=== PATIENT | female | born 1980 | race Hispanic/Latino ===

== ENCOUNTER 2016-07-28 06:22 | Day surgery (SDC) | payer OTHER ==
[~2016-07-28] VITALS: Ht 167.6 cm; Wt 65.8 kg
[~2016-07-28 06:22] MED LIST: AMOXICILLIN500 MG PO; AUGMENTIN875TAB PO; BENZONATATE200 MG PO; ESCITALOPRAM OX10 MG PO; FERR SULFATE325 MG PO; FERROUS SULF325 M1 PO; FLEXERIL OR; IBUPROFEN600 MG PO; LORAZEPAM0.5 MG PO; LORTAB 5/3255 MG PO; NAPROSYN375 MG PO; NO; PRE-NATAL PO; PRENATAL1 TA1 PO; PSEUDOEPHEDR30 MG PO; TUSSIN DM1 M1 PO; TYLENOL 500MG TAB PO
[2016-07-28] MEDS ORDERED: LORTAB 7.57.5 MG PO (09:21)
[2016-07-28 11:28] VITALS: BP 102/64
== END 2016-07-28 11:55 | disposition home or self-care (01) | DRG 745 ==
LOC: ORM 06:22
PROVIDERS: ATTEND Obstetrics & Gynecology
PROC: 0UL74CZ Occlusion of Bilateral Fallopian Tubes with Extraluminal Device, Percutaneous Endoscopic Approach (ICD-10-PCS; principal; 2016-07-28)
DX: Z30.2 Encounter for sterilization (principal)
CPT/HCPCS: J2710

== ENCOUNTER 2023-03-09 15:01 | Emergency (ER) | payer OTHER ==
[~2023-03-09] VITALS: Ht 167.6 cm; Wt 61.2 kg
[~2023-03-09 15:01] MED LIST changes: +LORTAB 7.57.5 MG PO
[2023-03-09 16:49] VITALS: BP 104/65
[2023-03-09] MEDS ORDERED: FLEXERIL5 M1 PO (18:23)
[2023-03-09] MEDS ORDERED: MOTRIN800 MG PO (18:23)
[2023-03-09 18:29] VITALS: BP 104/65
== END 2023-03-09 18:38 | disposition home or self-care (01) | DRG 563 ==
LOC: ED 15:01
DX: S29.012A Strain of muscle and tendon of back wall of thorax, initial encounter (principal); S16.1XXA Strain of muscle, fascia and tendon at neck level, initial encounter; S86.911A Strain of unspecified muscle(s) and tendon(s) at lower leg level, right leg, initial encounter; V53.5XXA Driver of pick-up truck or van injured in collision with car, pick-up truck or van in traffic accident, initial encounter

== ENCOUNTER 2023-08-21 22:01 | Emergency (ER) | payer SELFPAY ==
[~2023-08-21] VITALS: Ht 167.6 cm; Wt 62.0 kg
[~2023-08-21 22:01] MED LIST changes: +FLEXERIL5 M1 PO; +MOTRIN800 MG PO; +OMEPRAZOLE DR40 MG PO
[2023-08-21 22:10] VITALS: BP 104/57
[2023-08-21] MEDS ORDERED: SODIUM CHLORIDE 0.9% 1,000 ML IV STA (22:16)
[2023-08-21] MEDS ORDERED: KETOROLAC TROMETHAMINE 30 MG/ML SDV IV ONE (22:20)
[2023-08-21] MEDS ORDERED: PROMETHAZINE HCL 25 MG/ML AMP IV ONE (22:20)
[2023-08-21 22:25] LABS: URINE BILIRUBIN - DIPSTICK Negative (NEGATIVE); URINE BLOOD DIPSTICK Negative (NEGATIVE); URINE GLUCOSE - DIPSTICK Negative (NEGATIVE); URINE KETONE Negative (NEGATIVE); URINE LEUK ESTERASE Negative (NEGATIVE); URINE NITRITE - DIPSTICK Negative (Negative); URINE PROTEIN - DIPSTICK Trace mg/dL (NEG-TRACE)
[2023-08-21 22:27] LABS: URINE COLOR Yellow
[2023-08-21 22:32] LABS: BASO% 0.2 % (0-3); HEMATOCRIT 38.1 % (37.0-47.0); HEMOGLOBIN 12.7 g/dl (12.0-16.0); IMMATURE GRANULOCYTES 0.1 % (0.0-5.0); LYMPH% 16.1 % (15-41); MEAN CELL VOLUME 93.6 fL CALC (80.0-100.0); MEAN CORPUSCULAR HGB 31.2 pG CALC (26.0-32.0); MEAN CORPUSCULAR HGB CONC 33.3 g/dL CAL (32.0-36.0); MONO% 6.2 % (2-13); NEUT# 9.81 thou/uL (2.00-7.15); NEUT% 76.4 % (42-76); RED BLOOD COUNT 4.07 mill/uL (4.20-5.60)
[2023-08-21 22:54] LABS: ALBUMIN 3.9 g/dL (3.2-5.0); BILIRUBIN, TOTAL 0.4 mg/dL (0.02-1.3); CREATININE 0.9 mg/dL (0.5-1.0); POTASSIUM 3.5 mmol/l (3.5-5.1); TOTAL PROTEIN 7.3 g/dL (6.3-8.2)
[2023-08-21 23:02] VITALS: BP 101/61
[2023-08-21 23:38] VITALS: BP 94/66
[2023-08-21 23:56] VITALS: BP 100/59
[2023-08-22] VITALS (9 sets, daily range): BP systolic 87–107; BP diastolic 45–62
[2023-08-22] MEDS ORDERED: SODIUM CHLORIDE 0.9% 1,000 ML IV STA (01:06)
[2023-08-22] MEDS ORDERED: metroNIDAZOLE 500 MG/TAB PO ONE (01:55)
[2023-08-22] MEDS ORDERED: CIPROFLOXACIN HCL 500 MG/TAB PO ONE (01:55)
[2023-08-22] MEDS ORDERED: METRONIDAZOLE500 MG PO (01:56)
[2023-08-22] MEDS ORDERED: CIPROFLOXACN500 MG PO (01:56)
[2023-08-22] MEDS ORDERED: TRAMADOL HCL50 MG PO (01:56)
== END 2023-08-22 02:10 | disposition home or self-care (01) | DRG 392 ==
LOC: ED 22:01
PROVIDERS: Family Medicine
DX: K57.32 Diverticulitis of large intestine without perforation or abscess without bleeding (principal)
CPT/HCPCS: Q9967